=== PATIENT | female | born 1980 | race Caucasian/White ===

== ENCOUNTER 2017-08-05 15:56 | Emergency (ER) | payer MEDICAID, OTHER ==
[2017-08-05 16:28] VITALS: BMI 26.5
[2017-08-05] MEDS ORDERED: Sodium Chloride 0.9% 1,000 ML IV ONE ×2 (16:51→18:02)
[2017-08-05] MEDS ORDERED: Sodium Chloride 0.9% 1,000 ML ONE ×2 (17:08→18:06)
[2017-08-05 17:13] LABS: BASO # 0.1 K/uL (0.0-0.2); BASO % 0.5 % (0.0-2.0); EOS % 0.3 % (0.0-4.0); HEMOGLOBIN 10.3 g/dL (11.0-16.0); LYMPH # 1.7 K/uL (1.0-4.3); LYMPH % 10.6 % (20.0-40.0); MEAN CELL VOLUME 81.4 fL (81.0-99.0); MEAN CORPUSCULAR HEMOGLOBIN 26.8 pg (27.0-31.0); MEAN PLATELET VOLUME 7.7 fL (7.2-11.7); MONO # 1.4 K/uL (0.0-0.8); MONO % 8.6 % (0.0-10.0); RBC 3.86 Mil/uL (3.80-5.20); RED CELL DISTRIBUTION WIDTH 14.3 % (11.5-14.5); WHITE BLOOD COUNT 16.2 K/uL (4.8-10.8)
[2017-08-05 17:20] LABS: SQUAMOUS EPITHIAL 3 /hpf (0-5); URINE BILIRUBIN NEGATIVE (NEGATIVE); URINE BLOOD 2+ (NEGATIVE); URINE CLARITY Hazy (Clear); URINE COLOR Yellow (YELLOW); URINE GLUCOSE (UA) NORMAL (Normal); URINE LEUKOCYTE ESTERASE NEG Leu/uL (Negative); URINE PROTEIN 1+ mg/dL (NEGATIVE)
[2017-08-05 17:38] LABS: ALB/GLOB RATIO 0.9 (1.0-2.1); ALBUMIN 3.6 g/dL (3.5-5.0); ALT/SGPT 19 U/L (9-52); AST/SGOT 27 U/L (14-36); BLOOD UREA NITROGEN 7 mg/dL (7-17); CALCIUM 8.7 mg/dl (8.6-10.4); GFR AFRICAN-AMERICAN > 60; GFR NON-AFRICAN AMERICAN > 60; LIPASE 53 U/L (23-300)
[2017-08-05 18:02] VITALS: O2SAT 100
--- NOTE | 2017-08-05 18:28 | C.PDOC ---
History Of Present Illness 37-year-old female, presents to the emergency department with complaints of back pain, subjective fever, nausea and dry heaving over the past few days. Denies chest pain, cough, hematuria, shortness of breath or chest pain. Chief Complaint (Nursing): Female Genitourinary History Per: Patient History/Exam Limitations: no limitations Past Medical History Reviewed: Historical Data, Nursing Documentation, Vital Signs Vital Signs: Last Vital Signs Temp 98.1 F 08/05/17 22:12 Pulse 87 08/05/17 22:12 Resp 16 08/05/17 22:12 BP 109/72 08/05/17 22:12 Pulse Ox 100 08/05/17 22:12 Family History: States: No Known Family Hx - Social History Hx Alcohol Use: No Hx Substance Use: No - Immunization History Hx Tetanus Toxoid Vaccination: No Hx Influenza Vaccination: No Hx Pneumococcal Vaccination: No Review Of Systems Constitutional: Positive for: Fever. Negative for: Chills Cardiovascular: Negative for: Chest Pain Respiratory: Negative for: Cough, Shortness of Breath Gastrointestinal: Positive for: Nausea Genitourinary: Negative for: Hematuria Musculoskeletal: Positive for: Back Pain Skin: Negative for: Rash Neurological: Negative for: Headache, Dizziness Physical Exam - Physical Exam Appears: Non-toxic, No Acute Distress Skin: Normal Color, Warm, Dry, No Rash Head: Normacephalic Eye(s): bilateral: PERRL Nose: Normal Oral Mucosa: Moist Lips: Normal Appearing Neck: Normal ROM Cardiovascular: Rhythm Regular, No Murmur Respiratory: Normal Breath Sounds, No Accessory Muscle Use Gastrointestinal/Abdominal: Soft, Tenderness (right upper/lower quadrants), No Guarding, No Rebound Back: CVA Tenderness (B/L) Extremity: Normal ROM, No Deformity, No Swelling Neurological/Psych: Oriented x3, Normal Speech ED Course And Treatment - Laboratory Results Result Diagrams: 08/05/17 17:09 08/05/17 17:09 O2 Sat by Pulse Oximetry: 100 (RA) Pulse Ox Interpretation: Normal Disposition - Disposition Referrals: Nathalie Johnson, [Non-Staff] - Disposition: HOME/ ROUTINE Disposition Time: 21:20 Condition: IMPROVED Additional Instructions: Thank you for letting us take care of you today. The emergency medical care you received today was directed at your acute symptoms. If you were prescribed any medication, please fill it and take as directed. It may take several days for your symptoms to resolve. Return to the Emergency Department if your symptoms worsen, do not improve, or if you have any other problems. Please contact your doctor or call one of the physicians/clinics you have been referred to that are listed on the Patient Visit Information form that is included in your discharge packet. Bring any paperwork you were given at discharge with you along with any medications you are taking to your follow up visit. Our treatment cannot replace ongoing medical care by a primary care provider (PCP) outside of the emergency department. Thank you for allowing the [facility] team to be part of your care today. Follow up with your primary care doctor in 2-3 days for re-evaluation and further management. Prescriptions: Ibuprofen [Motrin] 600 mg PO Q6 PRN #20 tab PRN Reason: Pain, Moderate (4-7) Nitrofurantoin Macrocrystals [Macrobid] 100 mg PO BID #14 cap Ondansetron ODT [Zofran ODT] 8 mg PO Q8 PRN #15 odt PRN Reason: Nausea/Vomiting Instructions: Urinary Tract Infection, Adult (DC) Forms: Work/School/Gym Excuse, [employer] ([place]vorian) - Clinical Impression Clinical Impression: UTI (urinary tract infection) - Scribe Statement The provider has reviewed the documentation as recorded by the Scribe (Vanita Watson) All medical record entries made by the Scribe were at my direction and personally dictated by me. I have reviewed the chart and agree that the record accurately reflects my personal performance of the history, physical exam, medical decision making, and the department course for this patient. I have also personally directed, reviewed, and agree with the discharge instructions and disposition.
--- NOTE | 2017-08-05 18:39 | CT ---
PROCEDURE: CT Abdomen and Pelvis without intravenous contrast HISTORY: b/l flank pain R>L COMPARISON: None. TECHNIQUE: Contiguous images were obtained from the domes of the diaphragms to the upper thighs without the administration of intravenous contrast. Oral contrast was not administered. Radiation dose: Total exam DLP = 598.1 mGy-cm. This CT exam was performed using one or more of the following dose reduction techniques: Automated exposure control, adjustment of the mA and/or kV according to patient size, and/or use of iterative reconstruction technique. FINDINGS: LOWER THORAX: Unremarkable. LIVER: Unremarkable. No gross lesion or ductal dilatation. GALLBLADDER AND BILE DUCTS: Unremarkable. PANCREAS: Unremarkable. No gross lesion or ductal dilatation. SPLEEN: Unremarkable. ADRENALS: Unremarkable. No mass. KIDNEYS AND URETERS: Unremarkable. No hydronephrosis. No solid mass. VASCULATURE: Unremarkable. No aortic aneurysm. BOWEL: Prior gastric surgery. No obstruction. No gross mural thickening. APPENDIX: Unremarkable. Normal appendix. PERITONEUM: Unremarkable. No free fluid. No free air. LYMPH NODES: Unremarkable. No enlarged lymph nodes. BLADDER: Unremarkable. REPRODUCTIVE: Adjacent or bilobed left ovarian cysts spanning 4.8 x 3.7 cm. BONES: No acute fracture. OTHER FINDINGS: Partially imaged bilateral breast prostheses. IMPRESSION: No urolithiasis or evidence of recently passed genitourinary calculus. Adjacent or bilobed left ovarian cyst spanning 4.8 x 3.7 cm. Pelvic ultrasound can be obtained for further evaluation as clinically warranted. Additional findings as above.
--- NOTE | 2017-08-05 21:23 | US ---
EXAM: US Pelvis Complete, transvaginal CLINICAL HISTORY: 37 years old, female; Signs and symptoms; Other: R/O ovarian torsion; Prior surgery; Surgery type: Poss. Tummy tucked TECHNIQUE: Real-time t transvaginal pelvic ultrasound (complete) with image documentation. COMPARISON: No relevant prior studies available. FINDINGS: Uterus/cervix: Transvaginally, the uterus measures approximately 8.3 x 3.7 by 5.9 cm. The endometrial stripe measures 6 mm. Nabothian cysts are seen in the cervix. A 3 mm echogenic focus is noted along the anterior subendometrial myometrium. It does not shadow. It shows no blood flow. Right ovary: Transvaginally, the right ovary measures 2.9 x 2.4 x 3.3 cm. Subcentimeter follicles are present. Blood flow is seen in the right ovary on color Doppler and pulsed Doppler examination. Left ovary: Transvaginally, the left ovary measures 6.1 x 5.8 x 5.6 cm. It contains a cyst with 2 or 3 thin internal septations. No mural nodules. No blood flow seen in the septations. This cyst measures 5 x 3.7 x 4.6 cm. blood flow is seen in the left ovary on color Doppler and pulsed upper examination. Normal blood flow. Free fluid: Trace amount of free fluid within the posterior cul-de-sac transvaginally. Bladder: Unremarkable as visualized. Wall is normal thickness for degree of distention. IMPRESSION: 1. No evidence of ovarian torsion. 2. Multilocular left ovarian cyst. Followup in 6 weeks is recommended to document resolution. 3. 3 mm echogenic focus within the anterior subendometrial myometrium. This could represent an area of fibrosis. No suspicious features. EXAM: US Pelvis Complete, Transabdominal EXAM DATE/TIME: Exam ordered 08/05/2017 6:51 PM CLINICAL HISTORY: 37 years old, female; Signs and symptoms; Other: R/O ovarian torsion; Prior surgery; Surgery type: Poss. Tummy tucked TECHNIQUE: Real-time transabdominal pelvic ultrasound (complete) with image documentation. COMPARISON: No relevant prior studies available. FINDINGS: Uterus/cervix: Transabdominally, the uterus measures approximately 7.9 x 6.1 x 6.1 cm. The endometrial stripe measures 1.1 cm. Right ovary: The right ovary is not seen as a separate structure transabdominally. Left ovary: Transabdominally, left ovary measures 6.4 x 2.7 x 5.3 cm. Blood flow is seen in the left ovary color Doppler examination. A Cyst with thin internal septations is noted measuring 5 x 2.9 x 4.4 cm. Free fluid: No free fluid. Bladder: The bladder is poorly distended. IMPRESSION: 1. Nonvisualization of the right ovary. 2. Multilocular cyst in the left ovary. Followup in 6 weeks to document resolution.
[2017-08-05 22:13] VITALS: BP 109/72; PULSE 87; RESP 16; TEMP 98.1
== END 2017-08-05 22:15 | disposition home or self-care (01) ==
LOC: C.ER 15:56
DX: N39.0 Urinary tract infection, site not specified (principal)
CPT/HCPCS: 74176; 76830; 76856; 80053; 81001; 83690; 85025; 87040; 87086; 96361; 96374; 99285; J1885; J7040